=== PATIENT | female | born 1970 | race Hispanic/Latino ===

== ENCOUNTER 2017-10-12 09:13 | Inpatient (IN) | payer MEDICARE ==
[2017-10-12] VITALS (17 sets, daily range): BP systolic 83–181; BP diastolic 45–86
[~2017-10-12] VITALS: Ht 167.6 cm; Wt 71.0 kg
[~2017-10-12 09:13] MED LIST: ACET1TAB15 PO; CALC560O TP; ENAL20TA PO; ETAN50DI2 SQ; FLUC200T8 PO; FURO40TA5 PO; HUM10VIA SQ; ISOS60TA4 PO; LACT10SO PO; LEVO500T89 PO; MISO200T4 PO; NADO40TA19 PO; PANT40TA25 PO; PREG100C PO; RIFA550T PO; SPIR50TA3 PO; ZOLP10TA6 PO; [UNRECOGNIZED DRUG - OTHER]
[2017-10-12] MEDS ORDERED: INSULIN HUMULIN R 100 UNIT/ML 3ML ONE (10:02)
[2017-10-12 10:03] LABS: BASOPHILS % (AUTO) 0.4 % (0.0-5.0); EOSINOPHILS % (AUTO) 2.1 % (0.0-8.0); LYMPHOCYTES % (AUTO) 9.1 % (21.0-51.0); MEAN CORPUSCULAR HEMOGLOBIN 29.5 pg (27.0-33.0); MEAN CORPUSCULAR HGB CONC 32.9 g/dL (32.0-36.0); MEAN CORPUSCULAR VOLUME 89.6 fL (79-99); MONOCYTES % (AUTO) 5.8 % (3.0-13.0); NEUTROPHILS % (AUTO) 82.6 % (40.0-77.0); NUCLEATED RED BLOOD CELLS 0.1 % (0.0-0.19); PLATELET COUNT (AUTO) 38 K/uL (130-400); RED BLOOD CELL COUNT(AUTO) 2.27 MIL/uL (4.00-5.50); WHITE BLOOD COUNT (AUTO) 2.1 K/uL (4.8-10.8)
[2017-10-12 10:12] LABS: HEMATOCRIT 20.4 % (36-48)
[2017-10-12 10:16] LABS: INR 1.13 (0.85-1.15); PARTIAL THROMBOPLASTIN TIME 29.7 SEC (26.3-35.5); PROTHROMBIN TIME 11.8 SEC (9.6-11.6)
[2017-10-12 10:27] LABS: ALBUMIN 3.2 g/dL (3.5-5.0); BILIRUBIN,TOTAL 1.3 mg/dL (0.2-1.0); CREATININE 7.1 mg/dL (0.5-1.5); TOTAL PROTEIN, SERUM 5.8 g/dL (6.0-8.3)
[2017-10-12] MEDS ORDERED: ONDANSETRON HCL 4 MG/2 ML VIAL IVP PRN (13:30)
[2017-10-12] MEDS ORDERED: VANCOMYCIN 1.5 GM in SODIUM CHLORIDE 0.9% 250 ML IV SCH (13:30)
[2017-10-12] MEDS ORDERED: INSULIN REGULAR, HUMAN 3ML 100 UNIT in SODIUM CHLORIDE 0.9% 99 ML IV PRN ×4 (13:30→14:00)
[2017-10-12] MEDS ORDERED: DOPAMINE 800MG/D5 250ML 250 ML IV PRN (13:30)
[2017-10-12] MEDS: LEVOFLOXACIN 500 MG/D5W 100 ML 100 ML IV SCH (13:45)
[2017-10-12] MEDS: LACTULOSE 20 GM/30 ML UDCUP PO SCH ×2 (13:45→19:20)
[2017-10-12] MEDS ORDERED: VANCOMYCIN 1GM+NS 250ML 250 ML IV SCH (13:45)
[2017-10-12] MEDS ORDERED: ZOLP10TA6 PO (14:03)
[2017-10-12] MEDS ORDERED: MIDO10TA PO (14:03)
[2017-10-12] MEDS ORDERED: PREG50 PO (14:03)
[2017-10-12] MEDS ORDERED: LEVO25TA54 PO (14:03)
[2017-10-12] MEDS ORDERED: ELTR50TA PO (14:03)
[2017-10-12] MEDS ORDERED: PANT40TA25 PO (14:03)
[2017-10-12] MEDS: NOREPINEPHRINE 4MG/NS 250ML 250 ML IV SCH (14:31)
[2017-10-12] MEDS ORDERED: LACT10SO9 PO (16:24)
[2017-10-12] MEDS ORDERED: MIDODRINE HCL 5 MG TABLET PO SCH (21:00)
[2017-10-13] VITALS (28 sets, daily range): BP systolic 86–132; BP diastolic 53–82
[2017-10-13] MEDS: LACTULOSE 20 GM/30 ML UDCUP PO SCH ×4 (02:54→18:42)
[2017-10-13 04:03] LABS: BASOPHILS % (AUTO) 1.1 % (0.0-5.0); EOSINOPHILS % (AUTO) 4.7 % (0.0-8.0); HEMATOCRIT 26.9 % (36-48); LYMPHOCYTES % (AUTO) 12.6 % (21.0-51.0); MEAN CORPUSCULAR HEMOGLOBIN 29.2 pg (27.0-33.0); MEAN CORPUSCULAR HGB CONC 33.1 g/dL (32.0-36.0); MEAN CORPUSCULAR VOLUME 88.3 fL (79-99); MONOCYTES % (AUTO) 9.5 % (3.0-13.0); NEUTROPHILS % (AUTO) 72.1 % (40.0-77.0); PLATELET COUNT (AUTO) 46 K/uL (130-400); RED BLOOD CELL COUNT(AUTO) 3.05 MIL/uL (4.00-5.50); RED CELL DISTRIBUTION WIDTH 18.4 % (11.0-15.5); WHITE BLOOD COUNT (AUTO) 2.8 K/uL (4.8-10.8)
[2017-10-13 04:24] LABS: ALBUMIN 3.1 g/dL (3.5-5.0); BILIRUBIN,TOTAL 2.1 mg/dL (0.2-1.0); CREATININE 7.5 mg/dL (0.5-1.5); PHOSPHORUS 7.9 mg/dL (2.5-4.9); POTASSIUM 4.4 mmol/L (3.5-5.1); TOTAL PROTEIN, SERUM 5.8 g/dL (6.0-8.3)
[2017-10-13] MEDS: MIDODRINE HCL 5 MG TABLET PO SCH ×3 (05:10→20:55)
[2017-10-13] MEDS ORDERED: 0.9% SODIUM CHLORIDE 250 ML IV BAG IV PRN (09:45)
[2017-10-13] MEDS ORDERED: SODIUM CHLORIDE 0.9% 1000ML 1,000 ML IV PRN (09:45)
[2017-10-13] MEDS ORDERED: HEPARIN SODIUM 5000UNIT/ML 1ML VIAL IJ PRN ×2 (09:45)
[2017-10-13] MEDS ORDERED: EPOETIN ALFA 2,000 UNIT/ML VIAL SQ NR (09:45)
[2017-10-13] MEDS: FAMOTIDINE/PF 20 MG/2 ML VIAL IV SCH (09:56)
[2017-10-13] MEDS ORDERED: PANTOPRAZOLE SODIUM 40 MG TABLET.DR PO SCH (13:35)
[2017-10-13] MEDS ORDERED: GLUCAGON 1MG KIT 1 MG ML IM PRN (14:15)
[2017-10-13] MEDS ORDERED: DEXTROSE 50%-WATER 50 ML DISP.SYRIN IV PRN (14:15)
[2017-10-13] MEDS: NOREPINEPHRINE 4MG/NS 250ML 250 ML IV SCH (16:21)
[2017-10-13] MEDS ORDERED: INSULIN HUMULIN R 100 UNIT/ML 3ML SQ SCH (16:30)
[2017-10-13] MEDS: INSULIN HUMULIN R 100 UNIT/ML 3ML SQ SCH (18:46)
[2017-10-14] VITALS (17 sets, daily range): BP systolic 97–121; BP diastolic 64–96
[2017-10-14] MEDS: LACTULOSE 20 GM/30 ML UDCUP PO SCH ×4 (00:56→18:50)
[2017-10-14] MEDS: INSULIN HUMULIN R 100 UNIT/ML 3ML SQ SCH ×5 (00:56→21:30)
[2017-10-14] MEDS: MIDODRINE HCL 5 MG TABLET PO SCH ×3 (05:02→21:29)
[2017-10-14 05:17] LABS: CREATININE 5.9 mg/dL (0.5-1.5); POTASSIUM 4.5 mmol/L (3.5-5.1)
[2017-10-14 05:22] LABS: BASOPHILS % (AUTO) 0.6 % (0.0-5.0); HEMATOCRIT 28.2 % (36-48); LYMPHOCYTES % (AUTO) 11.9 % (21.0-51.0); MEAN CORPUSCULAR HEMOGLOBIN 29.9 pg (27.0-33.0); MEAN CORPUSCULAR HGB CONC 34.1 g/dL (32.0-36.0); MEAN CORPUSCULAR VOLUME 87.8 fL (79-99); MONOCYTES % (AUTO) 10.3 % (3.0-13.0); NEUTROPHILS % (AUTO) 74.2 % (40.0-77.0); PLATELET COUNT (AUTO) 50 K/uL (130-400); RED BLOOD CELL COUNT(AUTO) 3.22 MIL/uL (4.00-5.50); RED CELL DISTRIBUTION WIDTH 18.6 % (11.0-15.5); WHITE BLOOD COUNT (AUTO) 3.7 K/uL (4.8-10.8)
[2017-10-14] MEDS: LEVOFLOXACIN 500 MG/D5W 100 ML 100 ML IV SCH (09:59)
[2017-10-14] MEDS: FAMOTIDINE/PF 20 MG/2 ML VIAL IV SCH (09:59)
[2017-10-14] MEDS ORDERED: INSU100I21 SQ (14:23)
[2017-10-15] VITALS: BP 113/68
[2017-10-15] MEDS: LACTULOSE 20 GM/30 ML UDCUP PO SCH ×3 (01:41→14:26)
[2017-10-15 04:00] VITALS: BP 112/77
[2017-10-15 04:49] LABS: BASOPHILS % (AUTO) 0.6 % (0.0-5.0); EOSINOPHILS % (AUTO) 6.2 % (0.0-8.0); HEMATOCRIT 24.4 % (36-48); LYMPHOCYTES % (AUTO) 15.5 % (21.0-51.0); MEAN CORPUSCULAR HEMOGLOBIN 30.5 pg (27.0-33.0); MEAN CORPUSCULAR HGB CONC 34.4 g/dL (32.0-36.0); MEAN CORPUSCULAR VOLUME 88.7 fL (79-99); NEUTROPHILS % (AUTO) 65.7 % (40.0-77.0); PLATELET COUNT (AUTO) 46 K/uL (130-400); RED BLOOD CELL COUNT(AUTO) 2.75 MIL/uL (4.00-5.50); RED CELL DISTRIBUTION WIDTH 17.9 % (11.0-15.5); WHITE BLOOD COUNT (AUTO) 2.6 K/uL (4.8-10.8)
[2017-10-15 05:15] LABS: CREATININE 6.8 mg/dL (0.5-1.5); POTASSIUM 3.6 mmol/L (3.5-5.1); THYROID STIMULATING HORMONE 2.75 uIU/mL (0.36-3.74)
[2017-10-15] MEDS: MIDODRINE HCL 5 MG TABLET PO SCH ×2 (05:42→12:48)
[2017-10-15] MEDS ORDERED: LEVOTHYROXINE 25 MCG TABLET PO SCH (06:30)
[2017-10-15] MEDS ORDERED: PANTOPRAZOLE SODIUM 40 MG TABLET.DR PO SCH (09:00)
[2017-10-15 09:14] VITALS: BP 93/57
[2017-10-15 11:00] VITALS: BP 97/64
[2017-10-15] MEDS ORDERED: EPOETIN ALFA 10,000 UNIT/ML VIAL SQ SCH (14:00)
[2017-10-15] MEDS: ALBUMIN (HUMAN) 25% 100 ML IV PRN ×2 (14:58→16:17)
[2017-10-15 16:00] VITALS: BP 105/66
== END 2017-10-15 17:45 | disposition home or self-care (01) | DRG 871 ==
LOC: EDH 09:13 → EDHIP 10:55 → 2CH 12:32 → 2AH 10-13 18:22 → 2CH 10-13 18:30 → 3DH 10-14 21:58
PROVIDERS: ADMIT Internal Medicine Nephrology; ATTEND Internal Medicine Nephrology
PROC: 30233N1 Transfusion of Nonautologous Red Blood Cells into Peripheral Vein, Percutaneous Approach (ICD-10-PCS; principal; 2017-10-13)
PROC: 5A1D70Z Performance of Urinary Filtration, Intermittent, Less than 6 Hours Per Day (ICD-10-PCS; 2017-10-13)
PROC: 5A1D70Z Performance of Urinary Filtration, Intermittent, Less than 6 Hours Per Day (ICD-10-PCS; 2017-10-15)
DX: A41.9 Sepsis, unspecified organism (principal); N18.6 End stage renal disease; K72.91 Hepatic failure, unspecified with coma; D69.6 Thrombocytopenia, unspecified; E11.22 Type 2 diabetes mellitus with diabetic chronic kidney disease; E11.51 Type 2 diabetes mellitus with diabetic peripheral angiopathy without gangrene; I12.0 Hypertensive chronic kidney disease with stage 5 chronic kidney disease or end stage renal disease; E11.65 Type 2 diabetes mellitus with hyperglycemia; F41.9 Anxiety disorder, unspecified; F32.9 Major depressive disorder, single episode, unspecified; D64.9 Anemia, unspecified; D72.819 Decreased white blood cell count, unspecified; K74.60 Unspecified cirrhosis of liver; Z91.15 Patient's noncompliance with renal dialysis; Z91.19 Patient's noncompliance with other medical treatment and regimen; Z99.2 Dependence on renal dialysis; Z88.8 Allergy status to other drugs, medicaments and biological substances
CPT/HCPCS: 36415; 36430; 71045; 80048; 80053; 80202; 82140; 82270; 82533; 82948; 83605; 84100; 84443; 84484; 85025; 85610; 85730; 86850; 86900; 86901; 86922; 87040; 90935; 93005; 93306; 99291; J0885; J1644; J1815; J1956; J3370; J3490; J7030; P9016; P9046

== ENCOUNTER 2018-01-17 06:48 | Emergency (ER) | payer MEDICARE ==
[~2018-01-17 06:48] MED LIST changes: -ACET1TAB15 PO; -CALC560O TP; +ELTR50TA PO; -ENAL20TA PO; -ETAN50DI2 SQ; -FLUC200T8 PO; -FURO40TA5 PO; -HUM10VIA SQ; +INSU100I21 SQ; -ISOS60TA4 PO; -LACT10SO PO; +LACT10SO9 PO; +LEVO25TA54 PO; -LEVO500T89 PO; +MIDO10TA PO; -MISO200T4 PO; -NADO40TA19 PO; -PREG100C PO; +PREG50 PO; -RIFA550T PO; -SPIR50TA3 PO; -[UNRECOGNIZED DRUG - OTHER]
[2018-01-17] MEDS ORDERED: ACETAMINOPHEN EXTRA STRENGTH 500 MG TABLET ONE (07:09)
[2018-01-17 09:23] LABS: BASOPHILS % (AUTO) 0.6 % (0.0-5.0); HEMATOCRIT 24.1 % (36-48); LYMPHOCYTES % (AUTO) 7.9 % (21.0-51.0); MEAN CORPUSCULAR HEMOGLOBIN 30.6 pg (27.0-33.0); MEAN CORPUSCULAR HGB CONC 34.7 g/dL (32.0-36.0); MEAN CORPUSCULAR VOLUME 88.3 fL (79-99); NEUTROPHILS % (AUTO) 83.5 % (40.0-77.0); NUCLEATED RED BLOOD CELLS 0.1 % (0.0-0.19); PLATELET COUNT (AUTO) 63 K/uL (130-400); RED BLOOD CELL COUNT(AUTO) 2.73 MIL/uL (4.00-5.50); RED CELL DISTRIBUTION WIDTH 19.4 % (11.0-15.5)
[2018-01-17 09:32] LABS: CREATININE 7.2 mg/dL (0.5-1.5); POTASSIUM 4.6 mmol/L (3.5-5.1)
[2018-01-17 09:41] LABS: ALBUMIN 3.2 g/dL (3.5-5.0); BILIRUBIN,TOTAL 1.9 mg/dL (0.2-1.0); TOTAL PROTEIN, SERUM 6.8 g/dL (6.0-8.3)
[2018-01-17 09:58] LABS: EOSINOPHILS % (MANUAL) 2 % (1-6); LYMPHOCYTES % (MANUAL) 5 % (22-44); MONOCYTES % (MANUAL) 2 % (2-9); SEGMENTED NEUTROPHILS % 91 % (40-70)
[2018-01-17 09:59] LABS: MAN.DIFF COMMENT-IMPRESSION MANUAL DIFFERENTIAL
== END 2018-01-17 10:50 | disposition home or self-care (01) ==
LOC: EDH 06:48
DX: S00.83XA Contusion of other part of head, initial encounter (principal); E11.22 Type 2 diabetes mellitus with diabetic chronic kidney disease; I12.0 Hypertensive chronic kidney disease with stage 5 chronic kidney disease or end stage renal disease; K74.60 Unspecified cirrhosis of liver; N18.6 End stage renal disease; Z99.2 Dependence on renal dialysis; Z79.4 Long term (current) use of insulin; Z72.0 Tobacco use; Z88.8 Allergy status to other drugs, medicaments and biological substances; W18.39XA Other fall on same level, initial encounter; Y93.01 Activity, walking, marching and hiking; Y92.89 Other specified places as the place of occurrence of the external cause; Y99.8 Other external cause status
CPT/HCPCS: 36415; 70450; 71045; 72125; 80053; 84484; 85007; 85025; 93005

== ENCOUNTER 2018-03-04 08:04 | Inpatient (IN) | payer MEDICARE ==
[~2018-03-04] VITALS: Ht 167.6 cm; Wt 70.9 kg
[2018-03-04 08:33] LABS: BASOPHILS % (AUTO) 0.3 % (0.0-5.0); HEMATOCRIT 21.5 % (36-48); LYMPHOCYTES % (AUTO) 10.7 % (21.0-51.0); MEAN CORPUSCULAR HEMOGLOBIN 30.5 pg (27.0-33.0); MEAN CORPUSCULAR HGB CONC 33.9 g/dL (32.0-36.0); MEAN CORPUSCULAR VOLUME 90.1 fL (79-99); MONOCYTES % (AUTO) 5.3 % (3.0-13.0); NEUTROPHILS % (AUTO) 78.7 % (40.0-77.0); RED BLOOD CELL COUNT(AUTO) 2.39 MIL/uL (4.00-5.50); RED CELL DISTRIBUTION WIDTH 20.3 % (11.0-15.5); WHITE BLOOD COUNT (AUTO) 3.3 K/uL (4.8-10.8)
[2018-03-04 08:37] LABS: ABG BASE EXCESS -2.6 mmol/L (-2.0-3.0); ABG HCO3 20.2 mmol/L (21.0-28.0); ABG OXYGEN SATURATION 93.9 % (95.0-99.0); ABG PCO2 27 mmHg (32-45)
[2018-03-04 08:38] LABS: CREATININE 5.7 mg/dL (0.5-1.5)
[2018-03-04 08:45] LABS: BILIRUBIN,URINE MODERATE (NEGATIVE); GLUCOSE, URINE (UA) NEGATIVE (NEGATIVE); KETONES,URINE 15 mg/dL (NEGATIVE); LEUKOCYTE ESTERASE ,URINE LARGE (NEGATIVE); NITRATE,URINE POSITIVE (NEGATIVE); OCCULT BLOOD,URINE LARGE (NEGATIVE); PH,URINE 6.5 (5.0-8.0); PROTEIN,URINE >=300 (NEGATIVE)
[2018-03-04 08:48] LABS: APPEARANCE,URINE TURBID (CLEAR); COLOR,URINE Amber (YELLOW)
[2018-03-04 08:52] LABS: ALBUMIN 2.6 g/dL (3.5-5.0); BILIRUBIN,TOTAL 1.6 mg/dL (0.2-1.0); TOTAL PROTEIN, SERUM 6.2 g/dL (6.0-8.3)
[2018-03-04 08:53] LABS: CREATINE KINASE MB 0.5 ng/mL (0.5-3.6); CREATINE KINASE, TOTAL 56 U/L (21-232); MYOGLOBIN 133 ng/mL (10-92); TROPONIN I < 0.04 ng/mL (0.00-0.06)
[2018-03-04 08:57] LABS: PLATELET COUNT (AUTO) 43 K/uL (130-400)
[2018-03-04 08:58] LABS: PLATELET MORPHOLOGY COMMENT MARKED DECREASED
[2018-03-04 09:01] LABS: AMPHET/METH SCREEN,URINE NEGATIVE (NEGATIVE); BARBITURATE SCREEN, URINE NEGATIVE (NEGATIVE); BENZODIAZEPINES SCREEN,URINE NEGATIVE (NEGATIVE); CANNABINOID SCREEN,URINE NEGATIVE (NEGATIVE); COCAINE SCREEN,URINE NEGATIVE (NEGATIVE); OPIATE SCREEN,URINE POSITIVE (NEGATIVE); PHENCYCLIDINE SCREEN,URINE NEGATIVE (NEGATIVE)
[2018-03-04 09:08] LABS: BACTERIA,URINE Moderate /HPF (None Seen); SQUAMOUS EPITHELIAL CELL,UR Moderate /HPF (0-2); WBC,URINE TNTC /HPF (0-1); YEAST,URINE BUDDING Moderate /HPF (None Seen)
[2018-03-04] MEDS ORDERED: LACTULOSE 20 GM/30 ML UDCUP ONE ×2 (09:16→13:46)
[2018-03-04] MEDS ORDERED: CEFTRIAXONE SODIUM 1 GM ONE (09:17)
[2018-03-04] MEDS: LACTULOSE 20 GM/30 ML UDCUP PO SCH ×2 (13:30→21:40)
[2018-03-04] MEDS: ZOSYN 3.375GM+NS 50ML 50 ML IV SCH (13:30)
[2018-03-04] MEDS ORDERED: EPOETIN ALFA 20,000 UNIT/ML VIAL SQ SCH (13:30)
[2018-03-04] MEDS ORDERED: VANCOMYCIN PROTOCOL PER PHARMACY IV SCH (13:30)
[2018-03-04] MEDS ORDERED: COMPOUND IV MISC 1 EACH IVSOLN MISC PRN (13:45)
[2018-03-04] MEDS ORDERED: ZOSYN 3.375GM+NS 50ML 50 ML IV ONE (13:45)
[2018-03-04] MEDS: MIDODRINE HCL 5 MG TABLET PO SCH ×2 (14:00→21:39)
[2018-03-04] MEDS ORDERED: SODIUM CHLORIDE 0.9% 1000ML 1,000 ML IV PRN (15:45)
[2018-03-04] MEDS ORDERED: 0.9% SODIUM CHLORIDE 250 ML IV BAG IV PRN (15:45)
[2018-03-04] MEDS ORDERED: HEPARIN SODIUM 5000UNIT/ML 1ML VIAL IJ PRN (15:45)
[2018-03-04 16:00] VITALS: BP 115/65
[2018-03-04] MEDS ORDERED: COMPOUND IV REFRIGERATED 1 EACH IVSOLN MISC PRN (19:15)
[2018-03-04 19:46] VITALS: BP 89/57
[2018-03-04] MEDS: VANCOMYCIN 1.25 GM in SODIUM CHLORIDE 0.9% 250 ML IV SCH (21:40)
[2018-03-04 23:41] VITALS: BP 92/57
[2018-03-05] MEDS: ZOSYN 3.375GM+NS 50ML 50 ML IV SCH ×2 (01:20→13:52)
[2018-03-05 03:57] VITALS: BP 92/50
[2018-03-05 04:47] LABS: MEAN CORPUSCULAR HEMOGLOBIN 31.4 pg (27.0-33.0); MEAN CORPUSCULAR HGB CONC 34.2 g/dL (32.0-36.0); MEAN CORPUSCULAR VOLUME 91.7 fL (79-99); NUCLEATED RED BLOOD CELLS 0.1 % (0.0-0.19); PLATELET COUNT (AUTO) 35 K/uL (130-400); RED BLOOD CELL COUNT(AUTO) 2.21 MIL/uL (4.00-5.50); RED CELL DISTRIBUTION WIDTH 20.8 % (11.0-15.5); WHITE BLOOD COUNT (AUTO) 2.1 K/uL (4.8-10.8)
[2018-03-05 04:53] LABS: HEMATOCRIT 20.3 % (36-48)
[2018-03-05 04:57] LABS: CREATININE 4.6 mg/dL (0.5-1.5); PHOSPHORUS 5.3 mg/dL (2.5-4.9); POTASSIUM 3.1 mmol/L (3.5-5.1)
[2018-03-05] MEDS: LACTULOSE 20 GM/30 ML UDCUP PO SCH ×3 (05:20→21:04)
[2018-03-05 06:02] LABS: BASOPHILS % (MANUAL) 1 % (0-2); EOSINOPHILS % (MANUAL) 4 % (1-6); LYMPHOCYTES % (MANUAL) 11 % (22-44); MONOCYTES % (MANUAL) 6 % (2-9); SEGMENTED NEUTROPHILS % 78 % (40-70)
[2018-03-05 06:03] LABS: MAN.DIFF COMMENT-IMPRESSION MANUAL DIFFERENTIAL; PLATELET MORPHOLOGY COMMENT MARKED DECREASED
[2018-03-05 07:00] VITALS: BP 104/61
[2018-03-05 11:00] VITALS: BP 92/57
[2018-03-05] MEDS: IRON SUCROSE COMPLEX 100 MG in SODIUM CHLORIDE 0.9% 50 ML IV SCH (11:19)
[2018-03-05] MEDS ORDERED: EPOETIN ALFA 20,000 UNIT/ML VIAL SQ SCH (13:30)
[2018-03-05] MEDS: MIDODRINE HCL 5 MG TABLET PO SCH ×2 (13:53→21:03)
[2018-03-05] MEDS ORDERED: GLUCAGON 1MG KIT 1 MG ML IM PRN (15:00)
[2018-03-05] MEDS ORDERED: DEXTROSE 50%-WATER 50 ML DISP.SYRIN IV PRN (15:00)
[2018-03-05 16:00] VITALS: BP 99/59
[2018-03-05] MEDS: INSULIN HUMULIN R 100 UNIT/ML 3ML SQ SCH ×2 (17:22→21:24)
[2018-03-05 19:31] VITALS: BP 92/62
[2018-03-05 23:46] VITALS: BP 88/52
[2018-03-06] MEDS: ZOSYN 3.375GM+NS 50ML 50 ML IV SCH ×2 (01:52→16:28)
[2018-03-06 03:40] VITALS: BP 96/64
[2018-03-06] MEDS: LACTULOSE 20 GM/30 ML UDCUP PO SCH ×3 (04:48→21:09)
[2018-03-06 05:27] LABS: MEAN CORPUSCULAR HEMOGLOBIN 30.7 pg (27.0-33.0); MEAN CORPUSCULAR HGB CONC 33.7 g/dL (32.0-36.0); MEAN CORPUSCULAR VOLUME 91.1 fL (79-99); NUCLEATED RED BLOOD CELLS 0.1 % (0.0-0.19); PLATELET COUNT (AUTO) 43 K/uL (130-400); RED CELL DISTRIBUTION WIDTH 20.8 % (11.0-15.5); WHITE BLOOD COUNT (AUTO) 2.4 K/uL (4.8-10.8)
[2018-03-06 05:35] LABS: INR 1.18 (0.85-1.15); PARTIAL THROMBOPLASTIN TIME 29.6 SEC (26.3-35.5); PROTHROMBIN TIME 12.3 SEC (9.6-11.6)
[2018-03-06 05:41] LABS: ALBUMIN 2.6 g/dL (3.5-5.0); BILIRUBIN,TOTAL 1.4 mg/dL (0.2-1.0); CREATININE 5.8 mg/dL (0.5-1.5); PHOSPHORUS 5.1 mg/dL (2.5-4.9); POTASSIUM 3.1 mmol/L (3.5-5.1); TOTAL PROTEIN, SERUM 5.4 g/dL (6.0-8.3)
[2018-03-06 05:56] LABS: HEMATOCRIT 20.1 % (36-48)
[2018-03-06] MEDS: INSULIN HUMULIN R 100 UNIT/ML 3ML SQ SCH ×4 (06:04→22:01)
[2018-03-06 07:20] LABS: BASOPHILS % (MANUAL) 2 % (0-2); EOSINOPHILS % (MANUAL) 6 % (1-6); LYMPHOCYTES % (MANUAL) 14 % (22-44); MAN.DIFF COMMENT-IMPRESSION MANUAL DIFFERENTIAL; MONOCYTES % (MANUAL) 7 % (2-9); SEGMENTED NEUTROPHILS % 71 % (40-70)
[2018-03-06 07:45] VITALS: BP 100/62
[2018-03-06] MEDS: IRON SUCROSE COMPLEX 100 MG in SODIUM CHLORIDE 0.9% 50 ML IV SCH (10:49)
[2018-03-06] MEDS: MIDODRINE HCL 5 MG TABLET PO SCH ×3 (10:49→21:07)
[2018-03-06 11:15] VITALS: BP 101/67
[2018-03-06] MEDS ORDERED: ACETAMINOPHEN 325 MG TAB PO SCH (15:30)
[2018-03-06 16:45] VITALS: BP 95/50
[2018-03-06] MEDS ORDERED: ACETAMINOPHEN 325 MG TAB ONE (18:10)
[2018-03-06] MEDS: ALBUMIN (HUMAN) 25% 100 ML IV PRN (18:13)
[2018-03-06] MEDS: DiphenhydrAMINE HCL 50 MG/ML VIAL IV PRN ×2 (18:13→23:28)
[2018-03-06 19:42] VITALS: BP 95/60
[2018-03-06] MEDS: VANCOMYCIN 1.25 GM in SODIUM CHLORIDE 0.9% 250 ML IV SCH (23:24)
[2018-03-07 00:09] VITALS: BP 97/65
[2018-03-07] MEDS: ZOSYN 3.375GM+NS 50ML 50 ML IV SCH ×2 (01:08→14:58)
[2018-03-07 03:55] VITALS: BP 97/64
[2018-03-07 04:40] LABS: MEAN CORPUSCULAR HGB CONC 34.8 g/dL (32.0-36.0); MEAN CORPUSCULAR VOLUME 89.1 fL (79-99); NUCLEATED RED BLOOD CELLS 0.2 % (0.0-0.19); PLATELET COUNT (AUTO) 36 K/uL (130-400); RED BLOOD CELL COUNT(AUTO) 2.33 MIL/uL (4.00-5.50); WHITE BLOOD COUNT (AUTO) 2.3 K/uL (4.8-10.8)
[2018-03-07 04:45] LABS: HEMATOCRIT 20.8 % (36-48)
[2018-03-07 04:47] LABS: POTASSIUM 3.1 mmol/L (3.5-5.1)
[2018-03-07] MEDS: LACTULOSE 20 GM/30 ML UDCUP PO SCH ×2 (05:19→14:58)
[2018-03-07] MEDS: DiphenhydrAMINE HCL 50 MG/ML VIAL IV PRN (05:19)
[2018-03-07] MEDS: INSULIN HUMULIN R 100 UNIT/ML 3ML SQ SCH ×2 (06:09→11:58)
[2018-03-07] MEDS ORDERED: DIPHENHYDRAMINE HCL 25 MG CAPSULE PO SCH (06:15)
[2018-03-07] MEDS ORDERED: ACETAMINOPHEN 325 MG TAB PO SCH (06:15)
[2018-03-07] MEDS: MIDODRINE HCL 5 MG TABLET PO SCH ×2 (08:20→11:59)
[2018-03-07] MEDS: IRON SUCROSE COMPLEX 100 MG in SODIUM CHLORIDE 0.9% 50 ML IV SCH (10:05)
[2018-03-07] MEDS ORDERED: DiphenhydrAMINE HCL 50 MG/ML VIAL IV SCH (11:15)
[2018-03-07 11:46] VITALS: BP 91/58
[2018-03-07] MEDS ORDERED: ACETAMINOPHEN 325 MG TAB ONE (11:48)
[2018-03-07] MEDS: ALBUMIN (HUMAN) 25% 100 ML IV PRN (15:23)
[2018-04-07] MEDS ORDERED: RIFA550T PO (15:18)
[2018-04-07] MEDS ORDERED: Folic Acid/Vitamin B Comp W-C PO (15:18)
== END 2018-03-07 17:50 | disposition home or self-care (01) | DRG 441 ==
LOC: EDH 08:04 → EDHIP 10:35 → 2DH 15:18
PROVIDERS: ADMIT Internal Medicine Nephrology; ATTEND Internal Medicine Nephrology
PROC: 30233N1 Transfusion of Nonautologous Red Blood Cells into Peripheral Vein, Percutaneous Approach (ICD-10-PCS; principal; 2018-03-04)
PROC: 5A1D70Z Performance of Urinary Filtration, Intermittent, Less than 6 Hours Per Day (ICD-10-PCS; 2018-03-04)
PROC: 0W9G3ZZ Drainage of Peritoneal Cavity, Percutaneous Approach (ICD-10-PCS; 2018-03-06)
PROC: 5A1D70Z Performance of Urinary Filtration, Intermittent, Less than 6 Hours Per Day (ICD-10-PCS; 2018-03-07)
DX: K72.90 Hepatic failure, unspecified without coma (principal); N18.6 End stage renal disease; D61.818 Other pancytopenia; K92.2 Gastrointestinal hemorrhage, unspecified; R18.8 Other ascites; N17.9 Acute kidney failure, unspecified; I12.0 Hypertensive chronic kidney disease with stage 5 chronic kidney disease or end stage renal disease; E11.22 Type 2 diabetes mellitus with diabetic chronic kidney disease; E87.6 Hypokalemia; K74.60 Unspecified cirrhosis of liver; D64.9 Anemia, unspecified; B19.20 Unspecified viral hepatitis C without hepatic coma; Z91.19 Patient's noncompliance with other medical treatment and regimen; Z99.2 Dependence on renal dialysis; Z88.8 Allergy status to other drugs, medicaments and biological substances
CPT/HCPCS: 36415; 36430; 36600; 49083; 70450; 76705; 80048; 80053; 80305; 81001; 82140; 82150; 82330; 82435; 82550; 82553; 82803; 82947; 82948; 83605; 83690; 83874; 84100; 84132; 84295; 84484; 85018; 85025; 85027; 85610; 85730; 86850; 86900; 86901; 86922; 87040; 90935; 93005; 99291; J0696; J0885; J1200; J1644; J1756; J1815; J2543; J3370; J7030; P9016; P9046

== ENCOUNTER 2018-03-11 06:58 | Inpatient (IN) | payer MEDICARE ==
[~2018-03-11] VITALS: Ht 167.6 cm; Wt 76.7 kg
[2018-03-11 08:26] LABS: EOSINOPHILS % (AUTO) 1.2 % (0.0-8.0); HEMATOCRIT 24.1 % (36-48); MEAN CORPUSCULAR HEMOGLOBIN 31.8 pg (27.0-33.0); MEAN CORPUSCULAR HGB CONC 34.6 g/dL (32.0-36.0); MEAN CORPUSCULAR VOLUME 91.9 fL (79-99); MONOCYTES % (AUTO) 3.1 % (3.0-13.0); NEUTROPHILS % (AUTO) 88.7 % (40.0-77.0); PLATELET COUNT (AUTO) 35 K/uL (130-400); RED BLOOD CELL COUNT(AUTO) 2.62 MIL/uL (4.00-5.50); RED CELL DISTRIBUTION WIDTH 19.7 % (11.0-15.5); WHITE BLOOD COUNT (AUTO) 4.5 K/uL (4.8-10.8)
[2018-03-11 08:39] LABS: INR 1.05 (0.85-1.15); PARTIAL THROMBOPLASTIN TIME 28.9 SEC (26.3-35.5)
[2018-03-11] MEDS ORDERED: FUROSEMIDE 10 MG/ML 4ML VIAL ONE (08:45)
[2018-03-11] MEDS ORDERED: ALBUMIN (HUMAN) 25% 50 ML IV ONE (08:46)
[2018-03-11 09:22] LABS: ALBUMIN 2.9 g/dL (3.5-5.0); BILIRUBIN,DIRECT 0.9 mg/dL (0.0-0.3); BILIRUBIN,TOTAL 2.1 mg/dL (0.2-1.0); CREATININE 4.5 mg/dL (0.5-1.5); TOTAL PROTEIN, SERUM 6.3 g/dL (6.0-8.3)
[2018-03-11] MEDS ORDERED: POTASSIUM BICARB/CIT AC 25 MEQ TABLET.EFF ONE (09:42)
[2018-03-11 09:54] LABS: AMMONIA 31 umol/L (11-32)
[2018-03-11 10:03] LABS: CREATINE KINASE MB 1.6 ng/mL (0.5-3.6); CREATINE KINASE, TOTAL 52 U/L (21-232); MYOGLOBIN 109 ng/mL (10-92); TROPONIN I < 0.04 ng/mL (0.00-0.06)
[2018-03-11] MEDS ORDERED: INSULIN HUMULIN R 100 UNIT/ML 3ML ONE (11:23)
[2018-03-11 12:00] VITALS: BP 99/65
[2018-03-11] MEDS ORDERED: SODIUM CHLORIDE 0.9% 10 ML VIAL IVP PRN (12:00)
[2018-03-11] MEDS: FUROSEMIDE 10 MG/ML 4ML VIAL IVP SCH ×2 (12:00→23:42)
[2018-03-11] MEDS ORDERED: HEPARIN SODIUM 5000UNIT/ML 1ML VIAL IJ PRN (13:15)
[2018-03-11] MEDS ORDERED: SODIUM CHLORIDE 0.9% 1000ML 1,000 ML IV PRN (13:15)
[2018-03-11] MEDS ORDERED: ALBUMIN (HUMAN) 25% 100 ML IV PRN (13:15)
[2018-03-11] MEDS ORDERED: 0.9% SODIUM CHLORIDE 250 ML IV BAG IV PRN (13:15)
[2018-03-11] MEDS: MIDODRINE HCL 5 MG TABLET PO SCH ×2 (14:00→22:06)
[2018-03-11 16:00] VITALS: BP 97/59
[2018-03-11] MEDS ORDERED: DEXTROSE 50%-WATER 50 ML DISP.SYRIN IV PRN (19:15)
[2018-03-11] MEDS ORDERED: GLUCAGON 1MG KIT 1 MG ML IM PRN (19:15)
[2018-03-11 19:20] VITALS: BP 91/45
[2018-03-11] MEDS: INSULIN HUMULIN R 100 UNIT/ML 3ML SQ SCH (21:21)
[2018-03-11] MEDS ORDERED: MORPHINE SULFATE 4 MG/1ML SYG ONE (23:09)
[2018-03-12 00:33] VITALS: BP 99/62
[2018-03-12] MEDS ORDERED: MORPHINE SULFATE 4 MG/1ML SYG ONE ×4 (03:32→23:24)
[2018-03-12] MEDS: MORPHINE SULFATE 2 MG/ML 1ML SYG IVP PRN ×2 (03:35→23:26)
[2018-03-12 04:12] VITALS: BP 88/58
[2018-03-12] MEDS: MIDODRINE HCL 5 MG TABLET PO SCH ×3 (05:33→21:13)
[2018-03-12] MEDS: INSULIN HUMULIN R 100 UNIT/ML 3ML SQ SCH ×4 (06:03→22:06)
[2018-03-12 07:37] LABS: MEAN CORPUSCULAR HEMOGLOBIN 32.8 pg (27.0-33.0); MEAN CORPUSCULAR HGB CONC 35.5 g/dL (32.0-36.0); MEAN CORPUSCULAR VOLUME 92.5 fL (79-99); PLATELET COUNT (AUTO) 35 K/uL (130-400); RED BLOOD CELL COUNT(AUTO) 2.15 MIL/uL (4.00-5.50); RED CELL DISTRIBUTION WIDTH 19.7 % (11.0-15.5); WHITE BLOOD COUNT (AUTO) 3.2 K/uL (4.8-10.8)
[2018-03-12 07:47] LABS: CREATININE 4.6 mg/dL (0.5-1.5); INR 1.09 (0.85-1.15); POTASSIUM 3.7 mmol/L (3.5-5.1); PROTHROMBIN TIME 11.4 SEC (9.6-11.6)
[2018-03-12 08:00] LABS: HEMATOCRIT 19.9 % (36-48)
[2018-03-12 08:33] VITALS: BP 92/59
[2018-03-12 12:11] VITALS: BP 91/57
[2018-03-12 15:26] VITALS: BP 92/55
[2018-03-12] MEDS ORDERED: DiphenhydrAMINE HCL 50 MG/ML VIAL IV SCH (18:45)
[2018-03-12 19:40] VITALS: BP 95/58
[2018-03-12] MEDS: PANTOPRAZOLE SODIUM 40 MG TABLET.DR PO SCH (21:13)
[2018-03-12] MEDS: RIFAXIMIN 550 MG TABLET PO SCH (21:13)
[2018-03-12] MEDS: LACTULOSE 20 GM/30 ML UDCUP PO SCH (21:13)
[2018-03-13] VITALS (11 sets, daily range): BP systolic 88–100; BP diastolic 51–67
[2018-03-13] MEDS: MIDODRINE HCL 5 MG TABLET PO SCH ×2 (05:24→14:38)
[2018-03-13] MEDS ORDERED: MORPHINE SULFATE 4 MG/1ML SYG ONE ×2 (06:06→13:03)
[2018-03-13] MEDS: INSULIN HUMULIN R 100 UNIT/ML 3ML SQ SCH ×3 (06:27→17:40)
[2018-03-13 07:26] LABS: CREATININE 5.6 mg/dL (0.5-1.5); POTASSIUM 4.1 mmol/L (3.5-5.1)
[2018-03-13 07:29] LABS: INR 1.01 (0.85-1.15); PARTIAL THROMBOPLASTIN TIME 27.9 SEC (26.3-35.5); PROTHROMBIN TIME 10.6 SEC (9.6-11.6)
[2018-03-13] MEDS ORDERED: LEVOTHYROXINE 25 MCG TABLET PO SCH (07:30)
[2018-03-13 08:19] LABS: BASOPHILS % (AUTO) 0.8 % (0.0-5.0); EOSINOPHILS % (AUTO) 5.6 % (0.0-8.0); HEMATOCRIT 22.6 % (36-48); LYMPHOCYTES % (AUTO) 15.4 % (21.0-51.0); MEAN CORPUSCULAR HEMOGLOBIN 32.9 pg (27.0-33.0); MEAN CORPUSCULAR HGB CONC 35.3 g/dL (32.0-36.0); MONOCYTES % (AUTO) 8.7 % (3.0-13.0); NEUTROPHILS % (AUTO) 69.5 % (40.0-77.0); NUCLEATED RED BLOOD CELLS 0.1 % (0.0-0.19); PLATELET COUNT (AUTO) 56 K/uL (130-400); RED BLOOD CELL COUNT(AUTO) 2.43 MIL/uL (4.00-5.50); RED CELL DISTRIBUTION WIDTH 19.8 % (11.0-15.5); WHITE BLOOD COUNT (AUTO) 4.9 K/uL (4.8-10.8)
[2018-03-13] MEDS ORDERED: INSULIN GLARGINE 100 UNITS/ML 10 ML VIAL SQ SCH (09:00)
[2018-03-13] MEDS ORDERED: FOLIC ACID/VITAMIN B COMP W-C 1 MG CAPSULE PO SCH (09:00)
[2018-03-13] MEDS: LACTULOSE 20 GM/30 ML UDCUP PO SCH (09:08)
[2018-03-13] MEDS: RIFAXIMIN 550 MG TABLET PO SCH (09:09)
[2018-03-13] MEDS: PANTOPRAZOLE SODIUM 40 MG TABLET.DR PO SCH (09:09)
[2018-03-13] MEDS ORDERED: LIDOCAINE HCL 1% 10 ML VIAL ONE (11:12)
[2018-03-13] MEDS ORDERED: ALBUMIN (HUMAN) 25% 200 ML IV ONE (12:30)
[2018-03-13] MEDS ORDERED: DIPHENHYDRAMINE HCL 25 MG CAPSULE PO PRN (14:00)
[2018-03-13] MEDS ORDERED: DiphenhydrAMINE HCL 50 MG/ML VIAL IV ONE (15:00)
[2018-04-07] MEDS ORDERED: Folic Acid/Vitamin B Comp W-C PO (15:18)
[2018-04-07] MEDS ORDERED: RIFA550T PO (15:18)
== END 2018-03-13 18:50 | disposition home or self-care (01) | DRG 432 ==
LOC: EDH 06:58 → EDHIP 10:00 → 3BH 11:30
PROVIDERS: ADMIT Family Medicine; ATTEND Family Medicine
PROC: 5A1D70Z Performance of Urinary Filtration, Intermittent, Less than 6 Hours Per Day (ICD-10-PCS; principal; 2018-03-11)
PROC: 30233R1 Transfusion of Nonautologous Platelets into Peripheral Vein, Percutaneous Approach (ICD-10-PCS; 2018-03-11)
PROC: 0W9G3ZZ Drainage of Peritoneal Cavity, Percutaneous Approach (ICD-10-PCS; 2018-03-11)
DX: K74.60 Unspecified cirrhosis of liver (principal); N18.6 End stage renal disease; R18.8 Other ascites; I12.0 Hypertensive chronic kidney disease with stage 5 chronic kidney disease or end stage renal disease; B19.20 Unspecified viral hepatitis C without hepatic coma; E11.22 Type 2 diabetes mellitus with diabetic chronic kidney disease; F41.9 Anxiety disorder, unspecified; F32.9 Major depressive disorder, single episode, unspecified; D64.9 Anemia, unspecified; D69.6 Thrombocytopenia, unspecified; E11.65 Type 2 diabetes mellitus with hyperglycemia; E87.70 Fluid overload, unspecified; I95.89 Other hypotension; Z99.2 Dependence on renal dialysis; Z90.710 Acquired absence of both cervix and uterus
CPT/HCPCS: 36415; 49083; 71045; 80048; 80076; 82140; 82550; 82553; 82947; 82948; 83874; 83880; 84484; 85025; 85027; 85610; 85730; 86850; 86900; 86901; 90935; 93005; J1200; J1644; J1815; J1940; J2270; J3490; P9034; P9046; P9047

== ENCOUNTER 2018-06-10 20:18 | Inpatient (IN) | payer MEDICARE ==
[~2018-06-10] VITALS: Ht 167.6 cm; Wt 77.4 kg
[~2018-06-10 20:18] MED LIST changes: +Folic Acid/Vitamin B Comp W-C PO; +PHOSLOC PO; +RIFA550T PO; -ZOLP10TA6 PO
[2018-06-10 21:03] LABS: BASOPHILS % (AUTO) 1.8 % (0.0-5.0); EOSINOPHILS % (AUTO) 2.6 % (0.0-8.0); HEMATOCRIT 26.4 % (36-48); LYMPHOCYTES % (AUTO) 5.4 % (21.0-51.0); MEAN CORPUSCULAR HEMOGLOBIN 31.6 pg (27.0-33.0); MEAN CORPUSCULAR HGB CONC 34.1 g/dL (32.0-36.0); MEAN CORPUSCULAR VOLUME 92.6 fL (79-99); MONOCYTES % (AUTO) 9.2 % (3.0-13.0); NUCLEATED RED BLOOD CELLS 0.2 % (0.0-0.19); PLATELET COUNT (AUTO) 72 K/uL (130-400); RED BLOOD CELL COUNT(AUTO) 2.85 MIL/uL (4.00-5.50); RED CELL DISTRIBUTION WIDTH 19.8 % (11.0-15.5); WHITE BLOOD COUNT (AUTO) 5.4 K/uL (4.8-10.8)
[2018-06-10 21:16] LABS: INR 1.04 (0.85-1.15); PARTIAL THROMBOPLASTIN TIME 29.9 SEC (26.3-35.5); PROTHROMBIN TIME 10.9 SEC (9.6-11.6)
[2018-06-10 21:27] LABS: ALBUMIN 2.5 g/dL (3.5-5.0); BILIRUBIN,TOTAL 1.9 mg/dL (0.2-1.0); CREATINE KINASE MB 1.2 ng/mL (0.5-3.6); CREATININE 3.5 mg/dL (0.5-1.5); POTASSIUM 3.9 mmol/L (3.5-5.1); TOTAL PROTEIN, SERUM 5.8 g/dL (6.0-8.3)
[2018-06-10 21:47] LABS: B-TYPE NATRIURETIC PEPTIDE 44 pg/mL (0-100)
[2018-06-11] VITALS (7 sets, daily range): BP systolic 93–108; BP diastolic 58–74
[2018-06-11] MEDS ORDERED: INSULIN HUMULIN R 100 UNIT/ML 3ML SQ ONE (01:45)
[2018-06-11] MEDS ORDERED: INSULIN HUMULIN R 100 UNIT/ML 3ML ONE ×2 (02:07→05:50)
[2018-06-11] MEDS ORDERED: ZOLP10TA6 PO (02:22)
[2018-06-11] MEDS: MORPHINE SULFATE 2 MG/ML 1ML SYG IV PRN ×4 (02:30→20:51)
[2018-06-11 04:03] LABS: HEMATOCRIT 24.3 % (36-48); MEAN CORPUSCULAR HEMOGLOBIN 30.9 pg (27.0-33.0); MEAN CORPUSCULAR HGB CONC 33.3 g/dL (32.0-36.0); MEAN CORPUSCULAR VOLUME 92.6 fL (79-99); NUCLEATED RED BLOOD CELLS 0.3 % (0.0-0.19); PLATELET COUNT (AUTO) 50 K/uL (130-400); RED BLOOD CELL COUNT(AUTO) 2.62 MIL/uL (4.00-5.50); RED CELL DISTRIBUTION WIDTH 19.4 % (11.0-15.5); WHITE BLOOD COUNT (AUTO) 3.9 K/uL (4.8-10.8)
[2018-06-11 04:16] LABS: HEMOGLOBIN A1C 6.1 % (4.0-6.0)
[2018-06-11 04:19] LABS: EOSINOPHILS % (MANUAL) 4 % (1-6); LYMPHOCYTES % (MANUAL) 16 % (22-44); MAN.DIFF COMMENT-IMPRESSION MANUAL DIFFERENTIAL; MONOCYTES % (MANUAL) 10 % (2-9); PLATELET MORPHOLOGY COMMENT DECREASED; SEGMENTED NEUTROPHILS % 70 % (40-70)
[2018-06-11 04:26] LABS: ALBUMIN 2.3 g/dL (3.5-5.0); BILIRUBIN,TOTAL 1.5 mg/dL (0.2-1.0); CREATININE 4.1 mg/dL (0.5-1.5); POTASSIUM 3.7 mmol/L (3.5-5.1); TOTAL PROTEIN, SERUM 5.4 g/dL (6.0-8.3)
[2018-06-11] MEDS: INSULIN HUMULIN R 100 UNIT/ML 3ML SQ SCH ×4 (05:52→20:49)
[2018-06-11] MEDS: FAMOTIDINE/PF 20 MG/2 ML VIAL IV SCH (09:31)
[2018-06-11] MEDS: INSULIN GLARGINE 100 UNITS/ML 10 ML VIAL SQ SCH (09:36)
[2018-06-11] MEDS: LACTULOSE 20 GM/30 ML UDCUP PO SCH (13:28)
[2018-06-11] MEDS: MIDODRINE HCL 5 MG TABLET PO SCH ×2 (13:28→20:48)
[2018-06-11] MEDS: CALCIUM ACETATE 667 MG CAPSULE PO SCH (16:48)
[2018-06-11] MEDS: RIFAXIMIN 550 MG TABLET PO SCH (20:48)
[2018-06-11] MEDS: PANTOPRAZOLE SODIUM 40 MG TABLET.DR PO SCH (20:48)
[2018-06-11] MEDS: PREGABALIN 75 MG CAPSULE PO SCH (20:48)
[2018-06-12 03:46] VITALS: BP 103/68
[2018-06-12 04:25] LABS: HEMATOCRIT 24.1 % (36-48); MEAN CORPUSCULAR HEMOGLOBIN 31.7 pg (27.0-33.0); MEAN CORPUSCULAR HGB CONC 34.4 g/dL (32.0-36.0); MEAN CORPUSCULAR VOLUME 92.2 fL (79-99); NUCLEATED RED BLOOD CELLS 0.1 % (0.0-0.19); PLATELET COUNT (AUTO) 61 K/uL (130-400); RED BLOOD CELL COUNT(AUTO) 2.61 MIL/uL (4.00-5.50); RED CELL DISTRIBUTION WIDTH 19.7 % (11.0-15.5); WHITE BLOOD COUNT (AUTO) 3.9 K/uL (4.8-10.8)
[2018-06-12 04:57] LABS: CREATININE 4.8 mg/dL (0.5-1.5); PHOSPHORUS 5.7 mg/dL (2.5-4.9); POTASSIUM 3.3 mmol/L (3.5-5.1); THYROID STIMULATING HORMONE 3.54 uIU/mL (0.36-3.74)
[2018-06-12] MEDS: INSULIN HUMULIN R 100 UNIT/ML 3ML SQ SCH ×4 (06:36→21:43)
[2018-06-12] MEDS: LEVOTHYROXINE 25 MCG TABLET PO SCH (06:37)
[2018-06-12] MEDS: MORPHINE SULFATE 2 MG/ML 1ML SYG IV PRN ×3 (06:37→18:10)
[2018-06-12] MEDS: CALCIUM ACETATE 667 MG CAPSULE PO SCH ×3 (06:37→16:40)
[2018-06-12 07:33] VITALS: BP 105/68
[2018-06-12] MEDS: PREGABALIN 75 MG CAPSULE PO SCH ×2 (07:44→20:39)
[2018-06-12] MEDS: MIDODRINE HCL 5 MG TABLET PO SCH ×3 (07:44→20:39)
[2018-06-12] MEDS: PANTOPRAZOLE SODIUM 40 MG TABLET.DR PO SCH ×2 (07:44→20:39)
[2018-06-12] MEDS: FOLIC ACID/VITAMIN B COMP W-C 1 MG CAPSULE PO SCH (07:44)
[2018-06-12] MEDS: RIFAXIMIN 550 MG TABLET PO SCH ×2 (07:44→20:39)
[2018-06-12] MEDS: FAMOTIDINE/PF 20 MG/2 ML VIAL IV SCH (07:45)
[2018-06-12] MEDS: LACTULOSE 20 GM/30 ML UDCUP PO SCH ×2 (07:45→21:00)
[2018-06-12] MEDS: INSULIN GLARGINE 100 UNITS/ML 10 ML VIAL SQ SCH (07:49)
[2018-06-12 11:35] VITALS: BP 109/68
[2018-06-12] MEDS ORDERED: CEFTRIAXONE SODIUM 2 GM VIAL IVP SCH (12:15)
[2018-06-12] MEDS ORDERED: LIDOCAINE HCL MPF 1% 5ML VIAL ONE (14:56)
[2018-06-12] MEDS ORDERED: DiphenhydrAMINE HCL 50 MG/ML VIAL ONE (14:57)
[2018-06-12] MEDS ORDERED: ALBUMIN (HUMAN) 25% 200 ML IV ONE (14:58)
[2018-06-12] MEDS ORDERED: DiphenhydrAMINE HCL 50 MG/ML VIAL IV SCH (15:00)
[2018-06-12 16:59] LABS: GLUCOSE,BODY FLUID 238 mg/dL (1-40)
[2018-06-12 17:31] LABS: APPEARANCE BODY FLUID CLOUDY (CLEAR); COLOR,BODY FLUID LT YELLOW (LT YELLOW); SPECIMENTYPE,BODY FLUID ASCITES; TOTAL VOLUME,BODY FLUID 12000 mL
[2018-06-12 17:32] LABS: BODY FLUID RBC 344 /cu. mm.; BODY FLUID WBC 45 /cu. mm.
[2018-06-12 17:49] VITALS: BP 100/61
[2018-06-12 19:56] LABS: BF EOSINOPHIL 2 %; BF LYMPHOCYTE 32 %; BF MONOCYTE 10 %
[2018-06-12 20:00] VITALS: BP 95/53
[2018-06-13 00:18] VITALS: BP 90/53
[2018-06-13 03:28] VITALS: BP 94/61
[2018-06-13 05:44] LABS: BASOPHILS % (AUTO) 0.5 % (0.0-5.0); EOSINOPHILS % (AUTO) 4.7 % (0.0-8.0); HEMATOCRIT 22.2 % (36-48); LYMPHOCYTES % (AUTO) 11.7 % (21.0-51.0); MEAN CORPUSCULAR HEMOGLOBIN 30.7 pg (27.0-33.0); MEAN CORPUSCULAR VOLUME 93.1 fL (79-99); MONOCYTES % (AUTO) 10.8 % (3.0-13.0); NEUTROPHILS % (AUTO) 72.3 % (40.0-77.0); PLATELET COUNT (AUTO) 43 K/uL (130-400); RED BLOOD CELL COUNT(AUTO) 2.38 MIL/uL (4.00-5.50); RED CELL DISTRIBUTION WIDTH 19.2 % (11.0-15.5); WHITE BLOOD COUNT (AUTO) 3.5 K/uL (4.8-10.8)
[2018-06-13 05:58] LABS: ALBUMIN 2.3 g/dL (3.5-5.0); BILIRUBIN,DIRECT 0.7 mg/dL (0.0-0.3); BILIRUBIN,TOTAL 1.1 mg/dL (0.2-1.0); CREATININE 5.9 mg/dL (0.5-1.5); MAGNESIUM 2.1 mg/dL (1.80-2.40); POTASSIUM 3.7 mmol/L (3.5-5.1); TOTAL PROTEIN, SERUM 4.9 g/dL (6.0-8.3)
[2018-06-13] MEDS: MORPHINE SULFATE 2 MG/ML 1ML SYG IV PRN (06:14)
[2018-06-13] MEDS: INSULIN HUMULIN R 100 UNIT/ML 3ML SQ SCH ×2 (06:32→11:30)
[2018-06-13] MEDS: LEVOTHYROXINE 25 MCG TABLET PO SCH (06:32)
[2018-06-13] MEDS: CALCIUM ACETATE 667 MG CAPSULE PO SCH ×2 (06:32→11:30)
[2018-06-13 07:44] VITALS: BP 100/72
[2018-06-13] MEDS: PANTOPRAZOLE SODIUM 40 MG TABLET.DR PO SCH (08:29)
[2018-06-13] MEDS: MIDODRINE HCL 5 MG TABLET PO SCH ×2 (08:29→13:55)
[2018-06-13] MEDS: FAMOTIDINE/PF 20 MG/2 ML VIAL IV SCH (08:30)
[2018-06-13] MEDS: RIFAXIMIN 550 MG TABLET PO SCH (08:30)
[2018-06-13] MEDS: FOLIC ACID/VITAMIN B COMP W-C 1 MG CAPSULE PO SCH (08:30)
[2018-06-13] MEDS: LACTULOSE 20 GM/30 ML UDCUP PO SCH (08:30)
[2018-06-13] MEDS: PREGABALIN 75 MG CAPSULE PO SCH (08:30)
[2018-06-13] MEDS: INSULIN GLARGINE 100 UNITS/ML 10 ML VIAL SQ SCH (08:41)
[2018-06-13] MEDS ORDERED: ALBUMIN (HUMAN) 25% 100 ML IV PRN (11:30)
[2018-06-13] MEDS ORDERED: SODIUM CHLORIDE 0.9% 1000ML 1,000 ML IV PRN (11:30)
[2018-06-13] MEDS ORDERED: HEPARIN SODIUM 5000UNIT/ML 1ML VIAL IJ PRN (11:30)
[2018-06-13] MEDS ORDERED: 0.9% SODIUM CHLORIDE 250 ML IV BAG IV PRN (11:30)
[2018-06-13 11:38] VITALS: BP 102/64
[2018-06-13] MEDS ORDERED: DiphenhydrAMINE HCL 50 MG/ML VIAL IV SCH (12:00)
== END 2018-06-13 16:45 | DRG 432 ==
LOC: EDH 20:18 → EDHIP 06-11 → 2AH 06-11 00:53
PROVIDERS: ADMIT Hospitalist; ATTEND Hospitalist
PROC: 0W9G3ZZ Drainage of Peritoneal Cavity, Percutaneous Approach (ICD-10-PCS; 2018-06-12)
PROC: 5A1D70Z Performance of Urinary Filtration, Intermittent, Less than 6 Hours Per Day (ICD-10-PCS; principal; 2018-06-13)
DX: K74.60 Unspecified cirrhosis of liver (principal); N18.6 End stage renal disease; R18.8 Other ascites; I12.0 Hypertensive chronic kidney disease with stage 5 chronic kidney disease or end stage renal disease; D61.818 Other pancytopenia; K76.6 Portal hypertension; K72.90 Hepatic failure, unspecified without coma; E11.22 Type 2 diabetes mellitus with diabetic chronic kidney disease; R74.8 Abnormal levels of other serum enzymes; E11.65 Type 2 diabetes mellitus with hyperglycemia; D69.6 Thrombocytopenia, unspecified; E11.21 Type 2 diabetes mellitus with diabetic nephropathy; I95.9 Hypotension, unspecified; B19.20 Unspecified viral hepatitis C without hepatic coma; D73.1 Hypersplenism; E03.9 Hypothyroidism, unspecified; F32.9 Major depressive disorder, single episode, unspecified; F41.9 Anxiety disorder, unspecified; L40.9 Psoriasis, unspecified; Z99.2 Dependence on renal dialysis; Z79.4 Long term (current) use of insulin; Z91.19 Patient's noncompliance with other medical treatment and regimen; Z90.710 Acquired absence of both cervix and uterus; Z88.8 Allergy status to other drugs, medicaments and biological substances; Z87.891 Personal history of nicotine dependence; Z83.3 Family history of diabetes mellitus; Z82.5 Family history of asthma and other chronic lower respiratory diseases; Z82.49 Family history of ischemic heart disease and other diseases of the circulatory system; Z82.3 Family history of stroke; Z82.0 Family history of epilepsy and other diseases of the nervous system
CPT/HCPCS: 36415; 49083; 71045; 80048; 80053; 80076; 80339; 82140; 82550; 82553; 82945; 82948; 83036; 83615; 83690; 83735; 83880; 84100; 84157; 84443; 85025; 85027; 85610; 85730; 87071; 87205; 89051; 90935; 93005; 97039; A4218; J0696; J1200; J1815; J3490; P9046

== ENCOUNTER → 2018-06-21 | Outpatient (CLI) | payer MEDICARE ==
[~2018-06-21] MED LIST changes: +ALBUMIN (HUMAN) 25% 200 ML IV SCH; +DiphenhydrAMINE HCL 50 MG/ML VIAL ONE; -ELTR50TA PO; -Folic Acid/Vitamin B Comp W-C PO; +LIDOCAINE HCL MPF 1% 5ML VIAL ONE
[2018-06-21 08:23] LABS: INR 1.05 (0.85-1.15); PARTIAL THROMBOPLASTIN TIME 28.6 SEC (26.3-35.5)
== END | disposition home or self-care (01) ==
LOC: RAH 07:41
PROVIDERS: ATTEND Family Medicine
DX: R18.8 Other ascites (principal); N18.6 End stage renal disease; E11.22 Type 2 diabetes mellitus with diabetic chronic kidney disease; Z82.5 Family history of asthma and other chronic lower respiratory diseases; Z82.0 Family history of epilepsy and other diseases of the nervous system; Z80.9 Family history of malignant neoplasm, unspecified; Z82.3 Family history of stroke; Z82.49 Family history of ischemic heart disease and other diseases of the circulatory system; Z90.710 Acquired absence of both cervix and uterus; Z99.2 Dependence on renal dialysis
CPT/HCPCS: 36415; 49083; 85610; 85730; J1200; J3490 ×2; P9046

== ENCOUNTER 2018-07-11 12:50 | Emergency (ER) | payer MEDICARE ==
[~2018-07-11 12:50] MED LIST changes: -ALBUMIN (HUMAN) 25% 200 ML IV SCH; -DiphenhydrAMINE HCL 50 MG/ML VIAL ONE; -LIDOCAINE HCL MPF 1% 5ML VIAL ONE
[2018-07-11 13:49] LABS: BASOPHILS % (AUTO) 0.2 % (0.0-5.0); EOSINOPHILS % (AUTO) 1.4 % (0.0-8.0); LYMPHOCYTES % (AUTO) 4.9 % (21.0-51.0); MEAN CORPUSCULAR HEMOGLOBIN 31.9 pg (27.0-33.0); MEAN CORPUSCULAR HGB CONC 33.6 g/dL (32.0-36.0); MEAN CORPUSCULAR VOLUME 94.8 fL (79-99); MONOCYTES % (AUTO) 5.2 % (3.0-13.0); NEUTROPHILS % (AUTO) 88.3 % (40.0-77.0); PLATELET COUNT (AUTO) 63 K/uL (130-400); RED BLOOD CELL COUNT(AUTO) 2.74 MIL/uL (4.00-5.50); RED CELL DISTRIBUTION WIDTH 17.2 % (11.0-15.5); WHITE BLOOD COUNT (AUTO) 7.9 K/uL (4.8-10.8)
[2018-07-11 13:59] LABS: CREATININE 7.2 mg/dL (0.5-1.5); POTASSIUM 4.5 mmol/L (3.5-5.1)
[2018-07-11 14:01] LABS: ALBUMIN 2.6 g/dL (3.5-5.0); BILIRUBIN,TOTAL 1.4 mg/dL (0.2-1.0)
[2018-07-11 14:21] LABS: INR 1.05 (0.85-1.15); PARTIAL THROMBOPLASTIN TIME 29.2 SEC (26.3-35.5)
[2018-07-11] MEDS ORDERED: SODIUM CHLORIDE 0.9% 250 ML IV ONE (14:37)
== END 2018-07-11 18:41 | disposition home or self-care (01) ==
LOC: EDH 12:50
DX: K74.60 Unspecified cirrhosis of liver (principal); E72.20 Disorder of urea cycle metabolism, unspecified; E10.22 Type 1 diabetes mellitus with diabetic chronic kidney disease; N18.6 End stage renal disease; R41.82 Altered mental status, unspecified; L40.9 Psoriasis, unspecified; Z99.2 Dependence on renal dialysis; Z88.8 Allergy status to other drugs, medicaments and biological substances; W06.XXXA Fall from bed, initial encounter; Y93.89 Activity, other specified; Y92.89 Other specified places as the place of occurrence of the external cause; Y99.8 Other external cause status
CPT/HCPCS: 36415; 70450; 80053; 82140; 84484; 85025; 85610; 85730; 93005; 96360; 96361; 99285; J7030